=== PATIENT | female | born 1970 | race Caucasian/White ===

== ENCOUNTER 2023-11-13 08:54 | Outpatient (CLI) | payer BC | END 2023-11-13 08:55 | disposition home or self-care (01) | LOC: CSHULT 08:54 | PROVIDERS: ATTEND Nurse Practitioner Family | DX: R10.12 Left upper quadrant pain (principal) | CPT/HCPCS: 76700 ==

== ENCOUNTER 2024-03-19 10:52 | Outpatient (CLI) | payer BC | END 2024-03-19 10:53 | disposition home or self-care (01) | LOC: CSHULT 10:52 | DX: R10.9 Unspecified abdominal pain (principal) | CPT/HCPCS: 76700 ==